=== PATIENT | male | born 1995 | race American Indian/Alaskan Native ===

== ENCOUNTER 2018-12-08 13:32 | Emergency (ER) | payer SELFPAY ==
[2018-12-08 13:51] VITALS: BP 111/57
--- NOTE | 2018-12-08 14:57 | XRay Report ---
Flat and upright of abdomen: History: Abdominal pain/constipation. Findings: No bowel distention. Minimal stool in the ascending colon and rectum. No radiopaque calculus or abnormal calcification. Impression: Minimal stool in ascending colon and rectum. No bowel distention.
--- NOTE | 2018-12-08 15:39 | Emergency Department Report ---
HPI - General Chief Complaint: Abdominal Pain Time Seen by Provider: 12/08/18 14:29 - HPI HPI: Patient is a 23-year-old male with no prior medical history who presents ED complaining of feeling gassy and bloated and constipated the past month. Patient states feeling is intermittent. Patient states that he wanted to be evaluated further constipation. Patient denies any abdominal pain stating that he strains he is developmentally has some pain but otherwise none. Patient denies nausea/vomiting/diarrhea, chest pain/dizziness or any other problems. ED Past Medical Hx - Past Medical History Previous Medical History?: No - Surgical History Past Surgical History?: No - Social History Smoking Status: Never Smoker Substance Use Type: Marijuana - Medications Home Medications: Home Medications Medication Instructions Recorded Confirmed Last Taken Type Docusate Sodium [Colace] 100 mg PO BID PRN #30 capsule 12/08/18 Unknown Rx Multivitamin/Iron/Folic Acid [One 1 each PO DAILY #40 tablet 12/08/18 Unknown Rx Daily Multivitamin-Iron Tb] ED Review of Systems ROS: Stated complaint: ABD PAIN Other details as noted in HPI Constitutional: denies: chills, fever Eyes: denies: eye pain, eye discharge, vision change ENT: denies: ear pain, throat pain Respiratory: denies: cough, shortness of breath, wheezing Cardiovascular: denies: chest pain, palpitations Endocrine: no symptoms reported Gastrointestinal: denies: abdominal pain, nausea, diarrhea Genitourinary: denies: urgency, dysuria Musculoskeletal: denies: back pain, joint swelling, arthralgia Skin: denies: rash, lesions Neurological: denies: headache, weakness, paresthesias Psychiatric: denies: anxiety, depression Hematological/Lymphatic: denies: easy bleeding, easy bruising Physical Exam - Physical Exam Vital Signs: Vital Signs 12/08/18 13:48 Temperature 99 F Pulse Rate 79 Respiratory 16 Rate Blood Pressure 111/57 O2 Sat by Pulse 99 Oximetry Physical Exam: GENERAL: Alert and oriented x3, no apparent distress, Normal Gait, atraumatic. HEAD: Head is normocephalic and a-traumatic. LUNGS: Symetrical with respiration, No wheezing, no rales or crackles, CTAB. HEART: S1, S2 present, regular rate and rhythm without murmur, no rubs, no gallops. Non tender to palpation ABDOMEN: No organomegaly was noted,Positive bowel sounds, soft, and non- distended. . Nontender to palpation on all Quadrants, NO CVA tenderness. BACK: Full range of motion, no spinal tenderness, nontender to palpation. SKIN: Warm and dry, No lesions, No ulceration or induration present. ED Course Vital Signs 12/08/18 13:48 Temperature 99 F Pulse Rate 79 Respiratory 16 Rate Blood Pressure 111/57 O2 Sat by Pulse 99 Oximetry ED Medical Decision Making - Radiology Data Radiology results: report reviewed, image reviewed No acute processes findings. No obstructions noted Normal abdominal x-ray - Medical Decision Making 23-year-old male presents with constipation. Abdominal x-ray shows no acute findings. Discussed findings with the patient. Discussed with patient to increase diet and fiber. Discussed Colace Critical care attestation.: If time is entered above; I have spent that time in minutes in the direct care of this critically ill patient, excluding procedure time. ED Disposition Clinical Impression: Constipation Disposition: DC-01 TO HOME OR SELFCARE Is pt being admited?: No Does the pt Need Aspirin: No Condition: Stable Instructions: High Fiber Diet (ED), Constipation (ED), Anemia (ED) Additional Instructions: Make sure to follow up with the primary care physician as discussed. Take all your medications as you've been prescribed. If you have any worsening symptoms or develop new symptoms please return to ED immediately. Prescriptions: Docusate Sodium [Colace] 100 mg PO BID PRN #30 capsule PRN Reason: Constipation Multivitamin/Iron/Folic Acid [One Daily Multivitamin-Iron Tb] 1 each PO DAILY #40 tablet Referrals: ARELI DUEÑAS MD [Primary Care Provider] - 3-5 Days Forms: Work/School Release Form(ED) Time of Disposition: 15:43
== END 2018-12-08 16:10 | disposition home or self-care (01) ==
LOC: ED 13:32
DX: K59.00 Constipation, unspecified (principal)
CPT/HCPCS: 74019; 99283